=== PATIENT | female | born 1965 | race Caucasian/White ===

== ENCOUNTER 2017-03-03 10:26 | Emergency (ER) | payer MEDICAID ==
[2017-03-03 10:26] VITALS: BMI 45.3
[2017-03-03 10:31] VITALS: BP 136/88; PULSE 77; RESP 20; TEMP 98.1; O2SAT 96
[2017-03-03] MEDS ORDERED: Naproxen 550 mg Tab PO STA (10:55)
[2017-03-03] MEDS ORDERED: Naproxen 550 mg Tab PO ONE (10:59)
--- NOTE | 2017-03-03 11:47 | C.PDOC ---
History Of Present Illness 51 y/o female with Hx of Rheumatoid Arthritis presents to ED with complaints of bilateral knee pain for 4 days. Patient reports she takes Methotrexate injection every 2 weeks, given to her by Rheumatology Dr. Watson. Patient denies fever/chills, sensory changes, rashes. Time Seen by Provider: 03/03/17 10:32 Chief Complaint (Nursing): Lower Extremity Problem/Injury History Per: Patient History/Exam Limitations: no limitations Onset/Duration Of Symptoms: Days Current Symptoms Are (Timing): Still Present Severity: Mild Past Medical History Reviewed: Historical Data, Nursing Documentation, Vital Signs Vital Signs: Last Vital Signs Temp 98.1 F 03/03/17 10:28 Pulse 77 03/03/17 10:28 Resp 20 03/03/17 10:28 BP 136/88 03/03/17 10:28 Pulse Ox 96 03/03/17 12:03 - Medical History PMH: HTN, Rheumatoid Arthritis Family History: States: No Known Family Hx - Social History Hx Alcohol Use: No Hx Substance Use: No - Immunization History Hx Tetanus Toxoid Vaccination: No Hx Influenza Vaccination: No Hx Pneumococcal Vaccination: No Review Of Systems Except As Marked, All Systems Reviewed And Found Negative. Constitutional: Negative for: Fever, Chills Respiratory: Negative for: Shortness of Breath Gastrointestinal: Negative for: Nausea, Vomiting, Abdominal Pain Musculoskeletal: Positive for: Leg Pain Skin: Negative for: Rash Neurological: Negative for: Weakness, Numbness Physical Exam - Physical Exam Appears: Well, Non-toxic, No Acute Distress, Other (Morbidly obese) Skin: Normal Color, Warm, Dry, No Rash Head: Normacephalic Oral Mucosa: Moist Cardiovascular: Rhythm Regular Respiratory: Normal Breath Sounds, No Rales, No Rhonchi, No Wheezing Extremity: Tenderness (Bilateral mild tenderness to palpation around patellae), No Pedal Edema, No Calf Tenderness, Capillary Refill (<2 seconds all digits ), No Deformity, No Swelling Pulses: Left Dorsalis Pedis: Normal, Right Dorsalis Pedis: Normal Neurological/Psych: Oriented x3, Normal Motor, Normal Sensation Gait: Steady ED Course And Treatment O2 Sat by Pulse Oximetry: 96 (RA) Pulse Ox Interpretation: Normal - Other Rad knee Xrays X-Ray: Viewed By Me, Read By Radiologist Interpretation: Accession No. : [id number]. Patient Name / ID : BEVERLEY AREVALO / [id number]. Exam Date : 03/03/2017 10:55:26 ( Approved ). Study Comment : Sex / Age : F / 51Y. Creator : Jj Toscano MD. Dictator : Jj Toscano MD. Water Softener Service Supervisor : Customizer : Jj Toscano MD. Approver2 : Report Date : 03/03/2017 13:07:50. My Comment : . PROCEDURE: Bilateral Knee Radiographs. HISTORY: B/L KNEE PAIN, H/O RA. COMPARISON: None. FINDINGS: BONES: Right Knee: Normal. No fracture. There is an os ossific density in the anterior medial soft tissues of the right knee. There is no donor site evident to suggest an old fracture fragment. This is most likely dystrophic calcification. Left Knee: Normal. No fracture. JOINTS: Right Knee: Severe patellofemoral osteoarthritis. Mild medial and lateral compartment osteoarthritis. No articular erosion. Left knee: Severe patellofemoral osteoarthritis. Mild medial and lateral compartment osteoarthritis. No articular erosion. SOFT TISSUES: Right Knee: As above. Left Knee: Normal. JOINT EFFUSION: Right Knee: None. Left Knee: None. OTHER FINDINGS: None. IMPRESSION: Bilateral tricompartmental osteoarthritis most severe in the patellofemoral compartment bilaterally. Incidental calcific density in the anteromedial soft tissues of the right knee, likely dystrophic. tib/fib xrays X-Ray: Viewed By Me, Read By Radiologist Interpretation: Accession No. : [id number]. Patient Name / ID : BEVERLEY AREVALO / [id number]. Exam Date : 03/03/2017 11:03:04 ( Approved ). Study Comment : Sex / Age : F / 51Y. Creator : Jj Toscano MD. Dictator : Jj Toscano MD. Water Softener Service Supervisor : Customizer : Jj Toscano MD. Approver2 : Report Date : 03/03/2017 12:41:26. My Comment : . PROCEDURE: Radiographs of the bilateral Tibiae and Fibulae. HISTORY: R/O LEG PAIN H/O RA. COMPARISON: None available. TECHNIQUE: Frontal and lateral views obtained. FINDINGS: BONES: RIGHT TIBIA: No fracture or destructive lesion. LEFT TIBIA: No fracture or destructive lesion. JOINT SPACES: RIGHT TIBIA: Normal. LEFT TIBIA: Normal. SOFT TISSUES: RIGHT TIBIA: Normal. LEFT TIBIA: Normal. OTHER FINDINGS: None. IMPRESSION: Unremarkable radiographs of the bilateral tibia and fibula. Progress Note: Patient given PO Prednisone and PO Naprosyn. Xrays of B/L knees and tib/fib ordered and reviewed. Xrays (-) for acute bony injuries. Patient given Rxs for Naprosyn and Prednisone, and instructed to follow up with freight car inspector as scheduled on Friday. Patient understands she should return to ED if symptoms worsen. Reevaluation Time: 12:15 Reassessment Condition: Improved Disposition Counseled Patient/Family Regarding: Diagnosis, Need For Followup, Rx Given - Disposition Referrals: Benjamin Watson Jr., MD [Staff Provider] - Alison Montana MD [Non-Staff] - Disposition: HOME/ ROUTINE Disposition Time: 12:15 Condition: STABLE Additional Instructions: FOLLOW UP WITH YOUR MAIL CARRIERS SUPERVISOR IN 1-2 DAYS USE MEDICATION DIRECTED RETURN TO ER IF SYMPTOMS WORSEN Prescriptions: Naproxen [Naprosyn] 1 tab PO BID PRN #20 tab PRN Reason: Pain Ondansetron [Zofran Odt] 4 mg PO Q8 PRN #10 odt PRN Reason: Nausea/Vomiting predniSONE [predniSONE Tab] 40 mg PO DAILY #6 tab Instructions: Rheumatoid Arthritis (ED), Knee Pain (ED) Forms: [facility] (Angolan) Print Language: THAI - POA Present On Arrival: None - Clinical Impression Clinical Impression: Rheumatoid arthritis, Knee pain, bilateral - Scribe Statement The provider has reviewed the documentation as recorded by the Scribe Maricsa Obyd All medical record entries made by the Anne were at my direction and personally dictated by me. I have reviewed the chart and agree that the record accurately reflects my personal performance of the history, physical exam, medical decision making, and the department course for this patient. I have also personally directed, reviewed, and agree with the discharge instructions and disposition.
--- NOTE | 2017-03-03 12:43 | RAD ---
PROCEDURE: Radiographs of the bilateral Tibiae and Fibulae. HISTORY: R/O LEG PAIN H/O RA COMPARISON: None available. TECHNIQUE: Frontal and lateral views obtained. FINDINGS: BONES: RIGHT TIBIA: No fracture or destructive lesion. LEFT TIBIA: No fracture or destructive lesion. JOINT SPACES: RIGHT TIBIA: Normal. LEFT TIBIA: Normal. SOFT TISSUES: RIGHT TIBIA: Normal. LEFT TIBIA: Normal. OTHER FINDINGS: None. IMPRESSION: Unremarkable radiographs of the bilateral tibia and fibula.
--- NOTE | 2017-03-03 13:09 | RAD ---
PROCEDURE: Bilateral Knee Radiographs. HISTORY: B/L KNEE PAIN, H/O RA COMPARISON: None. FINDINGS: BONES: Right Knee: Normal. No fracture. There is an os ossific density in the anterior medial soft tissues of the right knee. There is no donor site evident to suggest an old fracture fragment. This is most likely dystrophic calcification. Left Knee: Normal. No fracture. JOINTS: Right Knee: Severe patellofemoral osteoarthritis. Mild medial and lateral compartment osteoarthritis. No articular erosion. Left knee: Severe patellofemoral osteoarthritis. Mild medial and lateral compartment osteoarthritis. No articular erosion. SOFT TISSUES: Right Knee: As above. Left Knee: Normal. JOINT EFFUSION: Right Knee: None. Left Knee: None. OTHER FINDINGS: None. IMPRESSION: Bilateral tricompartmental osteoarthritis most severe in the patellofemoral compartment bilaterally. Incidental calcific density in the anteromedial soft tissues of the right knee, likely dystrophic.
== END 2017-03-03 12:30 | disposition home or self-care (01) ==
LOC: C.ER 10:26
DX: M06.862 Other specified rheumatoid arthritis, left knee (principal); M06.861 Other specified rheumatoid arthritis, right knee; M25.561 Pain in right knee; M25.562 Pain in left knee